=== PATIENT | female | born 1990 | race Caucasian/White ===

== ENCOUNTER 2018-04-03 07:52 | Day surgery (SDC) | payer BC ==
--- NOTE | 2018-04-01 15:34 | PCM.HPR ---
H & P Addendum review - H & P Addendum Review Date of Original H & P: 03/10/18 Date Reviewed: 04/03/18 Time Reviewed: 07:50 Patient was Examined: No Changes
[~2018-04-03 07:52] MED LIST: Lactated Ringers 1,000 ML IV SCH; ceFAZolin 1 GM Vial IM ONE
[2018-04-03] MEDS ORDERED: Midazolam 1 MG/ML 2 ML SDV ONE (08:46)
[2018-04-03] MEDS ORDERED: Propofol 200 MG/20 ML SDV ONE ×4 (08:46→12:36)
[2018-04-03] MEDS ORDERED: Lidocaine 2% 5 ML SDV ONE (08:46)
[2018-04-03] MEDS ORDERED: fentaNYL 100 MCG/2 ML SDV ONE ×2 (08:46→12:51)
[2018-04-03] MEDS ORDERED: Rocuronium 10 MG/ML 10 ML Syringe ONE (08:46)
[2018-04-03] MEDS ORDERED: Phenylephrine/Normal Saline 100 MCG/ML 10 ML Syringe ONE (08:48)
[2018-04-03] MEDS ORDERED: EPINEPHrine 1 MG/ML SDV ONE (08:54)
[2018-04-03] MEDS ORDERED: Oxymetazoline 0.05% Nasal Spray 15 ML Bottle ONE (08:55)
[2018-04-03] MEDS ORDERED: Dexamethasone 4 MG/ML 5 ML MDV ONE (08:55)
[2018-04-03] MEDS ORDERED: Thrombin (Bovine) 5,000 Unit Kit ONE (08:55)
[2018-04-03] MEDS ORDERED: Lidocaine 2% with EPINEPHrine 1:100,000 20 ML MDV ONE (08:55)
--- NOTE | 2018-04-03 09:12 | PCM.PREANE ---
Preanesthetic Assessment - Anesthesia/Transfusion/Family Hx Anesthesia History: Prior Anesthesia Without Reaction Family History of Anesthesia Reaction: No Transfusion History: No Prior Transfusion(s) Intubation History: Unknown - Review of Systems General: No Symptoms Pulmonary: No Symptoms Cardiovascular: No Symptoms Gastrointestinal: No Symptoms Neurological: No Symptoms Other: Reports: None - Physical Assessment Height: 1.6 m Weight: 67.585 kg ASA Class: 2 Mental Status: Alert & Oriented x3 Airway Class: Mallampati = 2 Dentition: Reports: Normal Dentition Thyro-Mental Finger Breadths: 3 Mouth Opening Finger Breadths: 3 ROM/Head Extension: Full Lungs: Clear to Auscultation, Normal Respiratory Effort Cardiovascular: Regular Rate, Regular Rhythm - Lab Values: Laboratory Last Values Urine HCG, Qual NEGATIVE (NEGATIVE) 04/03/18 08:45 - Allergies Allergies/Adverse Reactions: Allergies Allergy/AdvReac Type Severity Reaction Status Date / Time animal dander Allergy Hives Verified 03/31/18 08:57 - Blood Blood Available: No - Anesthesia Plan Pre-Op Medication Ordered: None - Acknowledgements Anesthesia Type Planned: General Anesthesia Pt an Appropriate Candidate for the Planned Anesthesia: Yes Alternatives and Risks of Anesthesia Discussed w Pt/Guardian: Yes Pt/Guardian Understands and Agrees with Anesthesia Plan: Yes PreAnesthesia Questionnaire HEENT History: Reports: Allergic Rhinitis Respiratory History: Reports: Asthma (moderate/severe) Genitourinary History: Reports: Renal Calculus 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, Dermatologic History: Reports: Eczema - Infectious Disease History Infectious Disease History: Reports: None - Past Surgical History Head Surgeries/Procedures: Reports: None HEENT Surgical History: Reports: Other (See Below) Other HEENT Surgeries/Procedures: hx of Right Tympanoplasty Female Surgical History: Reports: Section (x3), Other (See Below) Other Female Surgeries/Procedures: hysteroscopy with removal of IUD, laparoscopy for endometriosis (01/11) - SUBSTANCE USE Smoking Status *Q: Former Smoker Recreational Drug Use History: No - HOME MEDS Home Medications: Home Meds Albuterol [Ventolin HFA] 1 puff INH Q4H PRN 01/06/18 [History] Budesonide/Formoterol [Symbicort 160-4.5 MCG] 2 puff INH BID 01/06/18 [History] Phentermine HCl 37.5 mg PO DAILY 01/06/18 [History] Albuterol Sulfate 1 unit NEB ASDIRECTED PRN 03/31/18 [History] Ibuprofen 1 tab PO ASDIRECTED PRN 03/31/18 [History] - CURRENT (IN HOUSE) MEDS Current Meds: Current Medications Lactated Ringer's (Ringers, Lactated) 1,000 mls @ 125 mls/hr IV ASDIRECTED RAULITO Discontinued Medications Cefazolin Sodium (Ancef) 1 gm IM ONETIME ONE Stop: 04/03/18 00:02 Dexamethasone (Dexamethasone) Confirm Administered Dose 20 mg .ROUTE .STK-MED ONE Stop: 04/03/18 08:56 Epinephrine HCl (Adrenalin) Confirm Administered Dose 3 mg .ROUTE .STK-MED ONE Stop: 04/03/18 08:55 Fentanyl (Sublimaze) Confirm Administered Dose 100 mcg .ROUTE .STK-MED ONE Stop: 04/03/18 08:47 Lidocaine (Xylocaine-Mpf 2%) Confirm Administered Dose 5 ml .ROUTE .STK-MED ONE Stop: 04/03/18 08:47 Lidocaine/Epinephrine (Xylocaine 2% With Epinephrine 1:100,000) Confirm Administered Dose 20 ml .ROUTE .STK-MED ONE Stop: 04/03/18 08:56 Midazolam HCl (Versed 1 Mg/Ml) Confirm Administered Dose 2 mg .ROUTE .STK-MED ONE Stop: 04/03/18 08:47 Oxymetazoline HCl (Afrin Original 0.05% Nasal [place]) Confirm Administered Dose 30 ml .ROUTE .STK-MED ONE Stop: 04/03/18 08:56 Phenylephrine HCl (Phenylephrine In Ns 100 Mcg/Ml) Confirm Administered Dose 1 mg .ROUTE .STK-MED ONE Stop: 04/03/18 08:49 Propofol (Diprivan 20 Ml) Confirm Administered Dose 400 mg .ROUTE .STK-MED ONE Stop: 04/03/18 08:47 Propofol (Diprivan 20 Ml) Confirm Administered Dose 200 mg .ROUTE .STK-MED ONE Stop: 04/03/18 08:48 Rocuronium [place] (Zemuron) Confirm Administered Dose 100 mg .ROUTE .STK-MED ONE Stop: 04/03/18 08:47 Thrombin (Thrombin-Jmi) Confirm Administered Dose 5,000 unit .ROUTE .STK-MED ONE Stop: 04/03/18 08:56
[2018-04-03] MEDS ORDERED: Scopolamine 1.5 MG Transdermal Patch TRDERM PRN (09:13)
--- NOTE | 2018-04-03 10:52 | PCM.HPR ---
H & P Addendum review - H & P Addendum Review Date of Original H & P: 03/10/18 Date Reviewed: 04/03/18 Time Reviewed: 10:00 Patient was Examined: No Changes
[2018-04-03] MEDS ORDERED: HYDROmorphone 2 MG/ML Syringe ONE ×2 (11:01→12:43)
[2018-04-03] MEDS ORDERED: Phenylephrine 1% 10 MG/ML SDV ONE (11:20)
[2018-04-03] MEDS ORDERED: Mineral Oil/Petrolatum Ophth Oint 3.5 GM Tube ONE (11:21)
[2018-04-03] MEDS ORDERED: fentaNYL 250 MCG/5 ML SDV ONE ×2 (11:40→12:22)
[2018-04-03] MEDS ORDERED: Meperidine PF 25 MG/ML Syringe IV PRN (11:56)
[2018-04-03] MEDS ORDERED: fentaNYL 100 MCG/2 ML SDV IVPUSH PRN (11:59)
[2018-04-03] MEDS ORDERED: Promethazine 25 MG/ML SDV IM PRN (11:59)
[2018-04-03] MEDS ORDERED: Ondansetron 4 MG/2 ML SDV ONE (12:55)
[2018-04-03] MEDS ORDERED: Ibuprofen 400 MG Tab PO PRN (14:18)
[2018-04-03] MEDS ORDERED: Acetaminophen 325 MG Tab PO PRN (14:18)
[2018-04-03] MEDS ORDERED: oxyCODONE 5 MG Tab PO PRN (14:23)
--- NOTE | 2018-04-03 14:40 | PCM.POSTAN ---
POST ANESTHESIA ASSESSMENT - MENTAL STATUS Mental Status: Alert, Oriented - RESPIRATORY Respiratory Status: Respiratory Rate WNL, Airway Patent, O2 Saturation Stable - CARDIOVASCULAR CV Status: Pulse Rate WNL, Blood Pressure Stable - GASTROINTESTINAL GI Status: No Symptoms - PAIN Pain Score: 0 - POST OP HYDRATION Hydration Status: Adequate & Stable
--- NOTE | 2018-04-03 14:56 | PCM.OPNOTE ---
- General Post-Op/Procedure Note Date of Surgery/Procedure: 04/03/18 Condition: Good Free Text/Narrative:: Diagnosis: Nasal obstruction, Chronic sinusitis, sino nasal polyps allergic rhinitis Procedure: Bilateral MMA, Right - complete anterior and posterior ethmoidectomy , R Sphenoidotomy, Exploration of Right Frontal sinus with removal of tissue, Left partial ant and posterior ethmoidectomy, Navigation Surgeon: Mariya Pascal MD Anesthesia: General Anesthesiologist:Dee Grande CRNA Date of procedure: 04/03/2018 Indications: Nasal obstruction, Chronic sinusitis, Findings: Bilateral medialized uncinate with polypoid tissue, Right frontal recess polyps present, bilateral polypoid MT; R sphenoethmoid polyps Operation Details: The SecureWave navigation system was set up and the Tracker was fixed to the fore head as per protocol and successful registration was obtained. The left middle turbinate axilla, the head of middle turbinate and polyps were infiltrated with 2% lidocaine and 1 in 100,000 epinephrine-a total of 3 ml was used. Similar injections were performed on the right side. A cottonoid pledget soaked in 1: 5000 epinephrine each was placed in the middle meatus, draping over the middle turbinate axilla and one in the region of the sphenoethmoid recess - this was done bilaterally. The left side was addressed first. After appropriate period of decongestion the cottonoid pledgets were removed. The middle turbinate was gently medialized with freer elevator and the 0 rigid nasal endoscope was introduced into the middle meatus. The polypoid mucosa on middle turbinate and uncinate process were removed with microdebrider using the Tricut blade. A right sided pediatric backbiter was used to remove the uncinate process at the junction of the horizontal and vertical part. A straight shot tri-cut blade with navigation attached to it was then used to debride the vertical attachment of the uncinate process up to the attachment of Agger nasi cell. A ball probe was then used to identified the left maxillary sinus ostium The horizontal part of the uncinate process was then further dissected away with a ball probe and then with a combination of microdebrider and cold steel dissection. The 30 rigid endoscope was used to examine the maxillary ostium - findings as above. The maxillary sinus was thoroughly irrigated with saline. A 0 degree nasal endoscope was used and next the natural ostium of the left bulla ethmoidalis was identified and down fractured with a curette. Further removal of the bulla was performed with a microdebrider blade and anterior ethmoid cells were removed. The mucosa of bulla and anterior ethmoid cells was healthy. The posterior ethmoids were entered by penetrating the ground lamella at the junction of horizontal and vertical part with a curette; further dissection was carried out with a microdebrider and some of the posterior ethmoid cells. At all times the position of instruments was confirmed with ZummZumm navigation and a combination of straight, 90 and 70 degrees suctions and ostium seekers - all navigated were used as required at appropriate times to assist with identifying landmarks and dissection. Attention was then directed towards the right side. The cottonoid pledgets were removed. The middle turbinate was gently medialized with freer elevator and the 0 rigid nasal endoscope was introduced into the middle meatus. The polypoid mucosa on middle turbinate and uncinate process were removed with microdebrider using the Tricut blade. Some of this was prolapsing into the R maxillary sinus. A left sided pediatric backbiter was used to remove the uncinate process at the junction of the horizontal and vertical part. A straight shot tri-cut blade with navigation attached to it was then used to debride the vertical attachment of the uncinate process up to the attachment of Agger nasi cell. Polypoid tissue in the frontal recess area was also removed. A ball probe was then used to identified the right maxillary sinus ostium The horizontal part of the uncinate process was then further dissected away with a ball probe and then with a combination of microdebrider and cold steel dissection. The 30 rigid endoscope was used to examine the maxillary ostium - findings as above. The maxillary sinus was thoroughly irrigated with saline. A 0 degree nasal endoscope was used and next the natural ostium of the right bulla ethmoidalis was identified and down fractured with a curette. Further removal of the bulla was performed with a microdebrider blade and anterior ethmoid cells were removed - partially polypoid. The posterior ethmoids were entered by penetrating the ground lamella at the junction of horizontal and vertical part with a curette; there was polypoid tissue in the anterior , posterior ethmoid cells ;further dissection was carried out with a microdebrider and the posterior ethmoid cells were cleared sequentially with the polypoid tissue. Endoscope was then withdrawn and inserted between the middle turbinate and nasal septum in the region of sphenoethmoid recess. The polypoid tissue was removed. Sphenoid natural ostium was identified using inferior third of the superior turbinate as a landmark. This was entered, enlarged and the mucosa was found to be healthy. Using a 30 degree nasal endoscope the right frontal sinus ostium was identified posterior - medial to the agger nasi cell. Minimal polypoid mucosa was identified just below the frontal recess and removed with microdebrider. Frontal sinus was irrigated. The right middle meatus was then finally irrigated with the warm saline and inspected with rigid endoscope. No loose bone chips were identified. As on the left side at all times the position of instruments was confirmed with ZummZumm navigation and a combination of straight, 90 and 70 degrees suctions and ostium seekers - all navigated were used as required at appropriate times to assist with identifying landmarks and dissection. Post nasal space was suctioned clear of blood bilaterally and per orally. Nasal pore packs were placed bilaterally and middle meatus. A nasal bollster was applied. This completed the procedure and the patient was turned over to the anesthesiologist for recovery. Specimens: contents from suction trap IV fluids: 1500 ml Blood loss: 10 ml Blood products: nil Disposition: PACU for recovery Follow up: In 1 week.
--- NOTE | 2018-04-03 17:06 | PCM48HPAN ---
Post Anesthesia Note - EVALUATION WITHIN 48HRS OF ANESTHETIC Vital Signs in Normal Range: Yes Patient Participated in Evaluation: Yes Respiratory Function Stable: Yes Airway Patent: Yes Cardiovascular Function Stable: Yes Hydration Status Stable: Yes Pain Control Satisfactory: Yes Nausea and Vomiting Control Satisfactory: Yes Mental Status Recovered: Yes Resp Rate: 16
== END 2018-04-03 16:08 | disposition home or self-care (01) ==
LOC: MW.SDS 07:52
PROVIDERS: ATTEND Otolaryngology
DX: J34.89 Other specified disorders of nose and nasal sinuses (principal); J32.9 Chronic sinusitis, unspecified; J33.8 Other polyp of sinus; J45.909 Unspecified asthma, uncomplicated; Z98.890 Other specified postprocedural states; Z88.1 Allergy status to other antibiotic agents; Z91.048 Other nonmedicinal substance allergy status; Z79.899 Other long term (current) drug therapy; Z87.891 Personal history of nicotine dependence
CPT/HCPCS: 31253; 31255; 31259; 61782; 81025; A9270; J0171; J0690; J1170; J2001; J2250; J2370; J2405; J2704; J3010; J7120; J0131; J1100

== ENCOUNTER 2018-08-23 20:57 | Emergency (ER) | payer BC ==
--- NOTE | 2018-08-23 21:19 | EDM.PDOC ---
ED HPI GENERAL MEDICAL PROBLEM - General Chief Complaint: ENT Problem Stated Complaint: PART OF NEEDLE IN HER THROAT Time Seen by Provider: 08/23/18 21:02 - History of Present Illness INITIAL COMMENTS - FREE TEXT/NARRATIVE: HISTORY AND PHYSICAL: History of present illness: Patient is a 28-year-old white female who presents with possible foreign body ingestion form of a sewing needle or some part thereof from earlier today. This was a fluke in which a sewing machine needle broke and a part of it was thought to maybe have a shot into the patient's mouth and patient thinks she may have swallowed it she has some vague discomfort she is unsure if this is anxiety and provoked by the event. She has no difficulty speaking swallowing. Review of systems: As per history of present illness and below otherwise all systems reviewed and negative. Past medical history: As per history of present illness and as reviewed below otherwise noncontributory. Surgical history: As per history of present illness and as reviewed below otherwise noncontributory. Social history: No reported history of drug or alcohol abuse. Family history: As per history of present illness and as reviewed below otherwise noncontributory. Physical exam: HEENT: Atraumatic, normocephalic, pupils reactive, negative for conjunctival pallor or scleral icterus, mucous membranes moist, throat clear, neck supple, nontender, trachea midline. Lungs: Clear to auscultation, breath sounds equal bilaterally, chest nontender. Heart: S1S2, regular, negative for clicks, rubs, or JVD. Abdomen: Soft, nondistended, nontender. Negative for masses or hepatosplenomegaly. Negative for costovertebral tenderness. Pelvis: Stable nontender. Genitourinary: Deferred. Rectal: Deferred. Extremities: Atraumatic, negative for cords or calf pain. Neurovascular unremarkable. Neuro: Awake, alert, oriented. Cranial nerves II through XII unremarkable. Cerebellum unremarkable. Motor and sensory unremarkable throughout. Exam nonfocal. Diagnostics: Nose to rectum x-ray equivalent Therapeutics: None Impression: #1 medical screening exam #2 possible foreign body ingestion Definitive disposition and diagnosis as appropriate pending reevaluation and review of above. - Related Data Allergies Allergy/AdvReac Type Severity Reaction Status Date / Time animal dander Allergy Hives Verified 03/31/18 08:57 Home Meds: Home Meds Albuterol [Ventolin HFA] 1 puff INH Q4H PRN 01/06/18 [History] Budesonide/Formoterol [Symbicort 160-4.5 MCG] 2 puff INH BID 01/06/18 [History] Phentermine HCl 37.5 mg PO DAILY 01/06/18 [History] Albuterol Sulfate 1 unit NEB ASDIRECTED PRN 03/31/18 [History] Ibuprofen 1 tab PO ASDIRECTED PRN 03/31/18 [History] Past Medical History HEENT History: Reports: Allergic Rhinitis Respiratory History: Reports: Asthma Genitourinary History: Reports: Renal Calculus 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, Dermatologic History: Reports: Eczema - Infectious Disease History Infectious Disease History: Reports: None - Past Surgical History Head Surgeries/Procedures: Reports: None HEENT Surgical History: Reports: Other (See Below) Other HEENT Surgeries/Procedures: hx of Right Tympanoplasty Female Surgical History: Reports: Section, Other (See Below) Other Female Surgeries/Procedures: hysteroscopy with removal of IUD, laparoscopy for endometriosis (01/11) Social & Family History - Family History Family Medical History: Noncontributory - Caffeine Use Caffeine Use: Reports: Coffee, Energy Drinks, Soda ED ROS GENERAL - Review of Systems Review Of Systems: ROS reveals no pertinent complaints other than HPI. ED EXAM, GENERAL - Physical Exam Exam: See Below (See dictation) Course - Vital Signs Last Recorded V/S: Last Vital Signs Temp 36.6 C 08/23/18 20:57 Pulse 78 08/23/18 20:57 Resp 16 08/23/18 20:57 BP 127/82 08/23/18 20:57 Pulse Ox 97 08/23/18 20:57 Departure - Departure Time of Disposition: 22:20 Disposition: Home, Self-Care 01 Condition: Good Clinical Impression: Encounter for medical screening examination - Discharge Information Forms: ED Department Discharge Additional Instructions: The following information is given to patients seen in the emergency department who are being discharged to home. This information is to outline your options for follow-up care. We provide all patients seen in our emergency department with a follow-up referral. The need for follow-up, as well as the timing and circumstances, are variable depending upon the specifics of your emergency department visit. If you don't have a primary care physician on staff, we will provide you with a referral. We always advise you to contact your personal physician following an emergency department visit to inform them of the circumstance of the visit and for follow-up with them and/or the need for any referrals to a consulting specialist. The emergency department will also refer you to a specialist when appropriate. This referral assures that you have the opportunity for followup care with a specialist. All of these measure are taken in an effort to provide you with optimal care, which includes your followup. Under all circumstances we always encourage you to contact your private physician who remains a resource for coordinating your care. When calling for followup care, please make the office aware that this follow-up is from your recent emergency room visit. If for any reason you are refused follow-up, please contact the [facility] emergency department at and asked to speak to the emergency department charge nurse. Follow-up primary medical doctor as needed as discussed return as needed as discussed
--- NOTE | 2018-08-23 21:53 | CR ---
INDICATION: R/O FOREIGN BODY. PATIENT FEELS LIKE NEEDLE BROKE OFF AND IS IN FRONT PART OF NECK TECHNIQUE: Soft tissue neck 2 view. COMPARISON: None. FINDINGS: The airway is patent and normal. Epiglottis is normal. The retropharyngeal soft tissues are normal. No obvious masses. The visualized cervical spine demonstrates no significant findings. No radiodense foreign body. IMPRESSION: Unremarkable soft tissue view of the neck. Dictated by Leon Mason MD @ Aug 23 2018 9:51PM Signed by Dr. Leon Mason @ Aug 23 2018 9:52PM
--- NOTE | 2018-08-23 22:11 | CR ---
INDICATION: Foreign body ingestion TECHNIQUE: Chest radiograph 1 view COMPARISON: None FINDINGS: Mediastinum: The mediastinum is normal in appearance. The heart silhouette is normal in size and morphology. Lung: Both lungs are unremarkable in appearance. No sign of pleural effusion seen. No pneumothorax is identified. identified. IMPRESSION: 1. No radiopaque foreign bodies are identified. Radiolucent foreign objects cannot be excluded by radiography. Dictated by: Chris March MD @ 08/23/2018 22:10:07 (Electronically Signed)
--- NOTE | 2018-08-23 22:11 | CR ---
INDICATION: Foreign body ingestion TECHNIQUE: Abdominal radiograph 2 views COMPARISON: None FINDINGS: Moderate degradation of image quality noted due to body habitus. Bowel: The bowel gas pattern is normal without evidence of bowel obstruction. IUD seen within midline pelvis. Soft tissue: No evidence of pneumoperitoneum present. No suspicious calcifications noted. No radiopaque foreign bodies are identified. Bone: Unremarkable for age. IMPRESSION: 1. No radiopaque foreign bodies are identified. Radiolucent foreign objects cannot be excluded by radiography. Dictated by Chris March MD @ 08/23/2018 10:08:57 PM Dictated by: Chris March MD @ 08/23/2018 22:09:05 (Electronically Signed)
== END 2018-08-23 22:29 | disposition home or self-care (01) ==
LOC: MW.ED 20:57
DX: Z03.89 Encounter for observation for other suspected diseases and conditions ruled out (principal); J45.909 Unspecified asthma, uncomplicated; Z79.899 Other long term (current) drug therapy
CPT/HCPCS: 70360; 70360-26; 71045; 71045-26; 74018; 74018-26; 99283-25

== ENCOUNTER 2019-01-05 06:30 | Day surgery (SDC) | payer BC ==
[2019-01-05] MEDS ORDERED: ceFAZolin 2 GM in Premix Bag 1 BAG IV ONE (07:00)
[2019-01-05] MEDS ORDERED: Lactated Ringers 1,000 ML IV SCH (07:00)
[2019-01-05] MEDS ORDERED: Lidocaine 2% 5 ML SDV ONE (07:15)
[2019-01-05] MEDS ORDERED: Midazolam 1 MG/ML 2 ML SDV ONE (07:15)
[2019-01-05] MEDS ORDERED: fentaNYL 100 MCG/2 ML SDV ONE ×3 (07:15→09:47)
[2019-01-05] MEDS ORDERED: Propofol 200 MG/20 ML SDV ONE (07:15)
--- NOTE | 2019-01-05 07:23 | PCM.PREANE ---
Preanesthetic Assessment - Anesthesia/Transfusion/Family Hx Anesthesia History: Prior Anesthesia Without Reaction Family History of Anesthesia Reaction: No Transfusion History: No Prior Transfusion(s) Intubation History: Unknown - Review of Systems General: No Symptoms Pulmonary: No Symptoms Cardiovascular: No Symptoms Gastrointestinal: No Symptoms Neurological: No Symptoms Other: Reports: None - Physical Assessment NPO Status Date: 01/04/19 NPO Status Time: 20:30 Vital Signs: Last Vital Signs Temp 96.8 F 01/05/19 06:45 Pulse 74 01/05/19 06:45 Resp 16 01/05/19 06:45 BP 97/74 01/05/19 06:45 Pulse Ox 100 01/05/19 06:45 Height: 5 ft 3 in Weight: 71.668 kg ASA Class: 2 Mental Status: Alert & Oriented x3 Airway Class: Mallampati = 2 Dentition: Reports: Normal Dentition ROM/Head Extension: Full Lungs: Clear to Auscultation, Normal Respiratory Effort Cardiovascular: Regular Rate, Regular Rhythm - Lab Values: Laboratory Last Values Urine HCG, Qual NEGATIVE (NEGATIVE) 01/05/19 06:50 - Allergies Allergies/Adverse Reactions: Allergies Allergy/AdvReac Type Severity Reaction Status Date / Time animal dander Allergy Hives Verified 12/30/18 14:08 - Blood Blood Available: No - Anesthesia Plan Pre-Op Medication Ordered: None - Acknowledgements Anesthesia Type Planned: General Anesthesia Pt an Appropriate Candidate for the Planned Anesthesia: Yes Alternatives and Risks of Anesthesia Discussed w Pt/Guardian: Yes Pt/Guardian Understands and Agrees with Anesthesia Plan: Yes Additional Comments: PMH: asthma, uses inhaled steroid inhaler daily, last use of rescue inhaler was 1 wk ago, no oral steroids for months, never to ED or hospitalized for asthma PLAN: ga/lma PreAnesthesia Questionnaire HEENT History: Reports: Allergic Rhinitis Respiratory History: Reports: Asthma, Other (See Below) Other Respiratory History: uses rescue inhaler 2x per week Genitourinary History: Reports: Renal Calculus Other Genitourinary History: has passed 1 kidney stone 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, Dermatologic History: Reports: Eczema - Infectious Disease History Infectious Disease History: Reports: None - Past Surgical History Head Surgeries/Procedures: Reports: None HEENT Surgical History: Reports: Naso-Sinus Surgery, Other (See Below) Other HEENT Surgeries/Procedures: right Tympanoplasty Respiratory Surgical History: Reports: None Female Surgical History: Reports: Section, Other (See Below) Other Female Surgeries/Procedures: hx of Laparoscopy, x3 Dermatological Surgical History: Reports: None - SUBSTANCE USE Smoking Status *Q: Never Smoker Recreational Drug Use History: No - HOME MEDS Home Medications: Home Meds Albuterol [Ventolin HFA] 1 puff INH Q4H PRN 01/06/18 [History] Budesonide/Formoterol [Symbicort 160-4.5 MCG] 2 puff INH BID 01/06/18 [History] Phentermine HCl 37.5 mg PO DAILY 12/30/18 [History] - CURRENT (IN HOUSE) MEDS Current Meds: Current Medications Lactated Ringer's (Ringers, Lactated) 1,000 mls @ 125 mls/hr IV ASDIRECTED [facility] Last Admin: 01/05/19 06:55 Dose: 125 mls/hr Cefazolin Sodium/Dextrose 2 gm (/ Premix) 50 mls @ 100 mls/hr IV ONETIME ONE Stop: 01/05/19 07:29 Discontinued Medications Fentanyl (Sublimaze) Confirm Administered Dose 100 mcg .ROUTE .STK-MED ONE Stop: 01/05/19 07:16 Lidocaine (Xylocaine-Mpf 2%) Confirm Administered Dose 5 ml .ROUTE .STK-MED ONE Stop: 01/05/19 07:16 Midazolam HCl (Versed 1 Mg/Ml) Confirm Administered Dose 2 mg .ROUTE .STK-MED ONE Stop: 01/05/19 07:16 Propofol (Diprivan 20 Ml) Confirm Administered Dose 200 mg .ROUTE .STK-MED ONE Stop: 01/05/19 07:16
[2019-01-05] MEDS ORDERED: Lidocaine 1% 20 ML MDV ONE (07:43)
[2019-01-05] MEDS ORDERED: Bupivacaine 0.5% 10 ML SDV ONE (07:43)
[2019-01-05] MEDS ORDERED: ceFAZolin/Dextrose,Iso-Osmotic 2 GM/50 ML Duplex Bag IV ONE (07:52)
[2019-01-05] MEDS ORDERED: Ondansetron 4 MG/2 ML SDV ONE ×2 (09:07→11:06)
[2019-01-05] MEDS ORDERED: HYDROmorphone 2 MG/ML Syringe ONE (10:00)
--- NOTE | 2019-01-05 10:04 | PCM.OPNOTE ---
- General Post-Op/Procedure Note Date of Surgery/Procedure: 01/05/19 Operative Procedure(s): 1. ostectomy second metatarsal right foot. 2. microfracture second metatarsal right foot Findings: consistent with diagnosis Pre Op Diagnosis: [place] infraction second metatarsal right foot Post-Op Diagnosis: [place] infraction second metatarsal right foot Anesthesia Technique: General LMA Primary Surgeon: Gerry Jefferson Pathology: loose bodies removed from second metatarsal head area right foot EBL in mLs: 5 Complications: none Condition: Good Free Text/Narrative:: materials: 4-0 vicryl, 4-0 Stratafix injectables: 6 ml 0.5% marcaine plain tourniquet time: 54 min
--- NOTE | 2019-01-05 10:11 | PN ---
PREOPERATIVE PROGRESS NOTE. IDENTIFICATION: Patient is a 28-year-old female. DATE OF SURGERY: January 05, 2019. SURGEON: Gerry Jefferson DPM. PLANNED PROCEDURE: 1. Ostectomy, second metatarsal, right foot. 2. Possible microfracture, second metatarsal, right foot. ALLERGIES: 1. Animal dander. 2. Mold. 3. Doxycycline. MEDICATIONS: 1. Phentermine 37.5 mg daily. 2. Symbicort 160/4.5 mcg two puffs twice a day. 3. Ventolin HFA inhaler two puffs every 4 hours as needed for cough, wheezing, shortness of breath. Medical conditions: asthma, hx of obesity, allergic rhinitis Surgical history: x 3, surgery on right tympanic membrane, laparascopy LABORATORY DATA: HCG is negative. Labs were stated by Dr. Morgan to include INR, CBC, BMP and that all were normal. According to Dr. Morgan, who has cleared the patient for surgery, EKG was reviewed and interpreted independently by Dr. Morgan, did show a slight sinus tachycardia, but no acute ischemic changes. FL interval and QRS duration were normal. A 2-view chest x-ray reviewed by Dr. Morgan did not show any acute cardiopulmonary changes. The patient is cleared for surgery with no contraindications to surgery by Dr. Alfonzo Morgan. All patient questions have been asked and answered. No guarantees have been expressed or implied. Risks and benefits of surgery have been thoroughly discussed with the patient with her present this morning as well as by phone prior to surgery and in the office prior to that. The patient presents and gives written consent for the surgical procedures as stated above. CUONG / MAURICIO /[id number] MONICA
[2019-01-05] MEDS ORDERED: HYDROmorphone 2 MG/ML Syringe IVPUSH PRN (10:18)
--- NOTE | 2019-01-05 10:33 | PCM.POSTAN ---
POST ANESTHESIA ASSESSMENT - MENTAL STATUS Mental Status: Alert - VITAL SIGNS Vital Signs: Last Vital Signs Temp 37 C 01/05/19 09:50 Pulse 79 01/05/19 10:25 Resp 14 01/05/19 10:25 BP 115/80 01/05/19 10:25 Pulse Ox 95 01/05/19 10:25 - RESPIRATORY Respiratory Status: Respiratory Rate WNL - CARDIOVASCULAR CV Status: Pulse Rate WNL - GASTROINTESTINAL GI Status: No Symptoms - POST OP HYDRATION Hydration Status: Adequate & Stable - OBSERVATIONS Free Text/Narrative:: Patient pain level 5/10. Pt was given Dilaudid 1 mg in recovery by VEHICLE CALIBRATION ENGINEER. TAX ASSISTANT gave patient a total of fentanyl 300 mg and Ketorolac 30 mg. Patient awake and stable. Thank You, Darryl Choudhury CRNA
[2019-01-05] MEDS ORDERED: Ondansetron 4 MG/2 ML SDV IVPUSH PRN (11:03)
--- NOTE | 2019-01-05 11:51 | PCM48HPAN ---
Post Anesthesia Note - EVALUATION WITHIN 48HRS OF ANESTHETIC Vital Signs in Normal Range: Yes Patient Participated in Evaluation: Yes Respiratory Function Stable: Yes Airway Patent: Yes Cardiovascular Function Stable: Yes Hydration Status Stable: Yes Pain Control Satisfactory: Yes Nausea and Vomiting Control Satisfactory: Yes Mental Status Recovered: Yes Vital Signs: Last Vital Signs Temp 97.0 F 01/05/19 10:50 Pulse 64 01/05/19 11:10 Resp 16 01/05/19 11:10 BP 117/70 01/05/19 11:10 Pulse Ox 96 01/05/19 11:10
--- NOTE | 2019-01-05 16:03 | CR ---
EXAM DATE: 01/05/19 PATIENT'S AGE: 28 Right forefoot: Five fluoroscopic spot views of the right forefoot were obtained utilizing C-arm device. No significant change is seen between the five views of this exam. Please correlate as to procedure. Film technique is too light to show much detail. Impression: 1. Findings as noted above. Diagnostic code #2 Report Signed by Proxy. MONICA
--- NOTE | 2019-01-05 22:34 | OR ---
SURGEON: Gerry Jefferson DPM DATE OF PROCEDURE: 01/05/2019 PRIMARY SURGEON: Gerry Jefferson DPM. PREOPERATIVE DIAGNOSIS: 1. 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 POSTOPERATIVE DIAGNOSIS: 1. 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 OPERATIVE PROCEDURES: 1. Ostectomy 2nd metatarsal, right foot. 2. Microfracture, 2nd metatarsal, right foot. FINDINGS: Consistent with diagnosis. HEMOSTASIS: Above ankle pneumatic tourniquet inflated to a pressure of 250 mmHg after an Esmarch bandage exsanguination of the right lower extremity. ANESTHESIA: General. PATHOLOGY: Loose bodies removed from 2nd metatarsal head area, right foot. ESTIMATED BLOOD LOSS: 5 mL. COMPLICATIONS: None. MATERIALS: 4-0 Vicryl, 4-0 Stratafix. INJECTABLES: 6 mL of 0.5% Marcaine plain. CONDITION: The patient tolerated the procedure and anesthesia well with no complications noted and a prompt hyperemic response was noted to all digits of the right lower extremity following deflation of the tourniquet. TOURNIQUET TIME: 54 minutes. JUSTIFICATION FOR THE PROCEDURE: The patient is a 28-year-old female who has long suffered pain in the right 2nd metatarsal head and metatarsophalangeal joint area of the right foot who underwent both x-ray in my office during her initial visit and subsequently a CT scan to further evaluate the pathology about her right 2nd metatarsal head. 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 In any event, the patient does have loose bodies that are causing pain in the right foot. Additionally, the condition of the 2nd metatarsal head is thought to be compromised by this condition and therefore the patient was consented for possible microfracture of the 2nd metatarsal of the right foot in order to increase the blood flow and stimulate potential regeneration of cartilage about the 2nd metatarsal head. The patient understands the risks and benefits of surgery and wishes to proceed with surgery and has consented for the procedure in writing. All patient's questions have been answered. No guarantees expressed or implied and the patient has been fully apprised of risks and benefits of surgery including prolonged healing, postoperative infection and failure to achieve adequate alleviation of her symptoms. PROCEDURE IN DETAIL: The patient was brought to the operating room and transferred to the operating table in the supine position. Anesthesia was administered and aseptic scrub and drape was performed about the patient's right lower extremity. Prior to beginning the procedure, a time-out was performed verifying the procedures consented for and the surgical site and prophylaxis that had been administered. Preoperative fluoroscopy was utilized documenting preoperative site and incision was planned just lateral to the extensor tendon over the 2nd ray running from approximately 1 cm proximal to the 2nd metatarsophalangeal joint of the right foot distally to the mid shaft of the proximal phalanx of the 2nd toe on the right foot. Esmarch bandage exsanguination was performed. Tourniquet was inflated to 250 mmHg. An incision was then made following the planned incision site running from proximal to distal and deepened using a curved mosquito hemostat through the subcutaneous tissue. Blunt and sharp dissection was utilized as needed and all small bleeders were bovied as necessary. The extensor tendon was identified, noted to be slightly torn, presumably by sharp loose body or loose bodies and was retracted out of the way. It was also undermined as needed to access the 2nd metatarsophalangeal joint. At this time, loose bodies were readily visible and easily removed with a pickup. A total of 5 loose bodies consisting of various sizes and shapes of bone were removed including one which was between 1 and 1.5 cm in length, which was larger than anything indicated by the CT scan. The condition of the 2nd metatarsal head was evaluated. There was preservation of most of the 2nd metatarsal head including cartilage; however, early chondromalacia was noted to the dorsal 3rd of the 2nd metatarsal head and intraoperative decision was made to proceed with the microfracture technique to increase blood flow to the 2nd metatarsal head and this was achieved using a 0.035 inch K-wire, which was drilled in 6 locations at various angles and from various directions into the 2nd metatarsal distal shaft and head area. The site was irrigated with copious amounts of normal sterile saline and reinspected for further loose bodies. Intraoperative fluoroscopy was utilized to search for any hidden loose bodies as well. No further loose bodies being found, final x-rays were taken and saved. Closure began with repair of the slightly torn extensor tendon which was noted to be slightly torn on the lateral side. Only two 4-0 Vicryl sutures were utilized to repair the loose portion of the tendon and closure proceeded with the deep and subcutaneous tissue being closed with 4-0 Vicryl suture and then a running subcuticular stitch using 4-0 Stratafix suture. The tourniquet was deflated at a time of 54 minutes. There was a prompt hyperemic response to all digits of the patient's right foot. Dressings were applied consisting of Betadine-soaked Xeroform gauze, 4 x 4 gauze, Kerlix roll, and Aba bandage. Prior to application of dressing, 6 mL of 0.5% Marcaine plain was injected about the surgical site. The patient tolerated the anesthesia and the procedure well with no complications noted and vital signs stable, was transported from the operating room to the recovery room where after brief stay patient was to be brought to her preoperative room and discharged with written and verbal instructions regarding postoperative care and follow up in my office which will be in 2 days' time. The patient has my cell phone in the event that she has any questions. CUONG MARTÍNEZ /[id number] MONICA
[2019-01-06] MEDS ORDERED: ceFAZolin 2 GM in Premix Bag 1 BAG IV ONE (07:00)
== END 2019-01-05 11:30 | disposition home or self-care (01) ==
LOC: MW.SDS 06:30
PROVIDERS: ATTEND Podiatrist Foot & Ankle Surgery
DX: M24.08 Loose body, other site (principal); M92.71 Juvenile osteochondrosis of metatarsus, right foot; M94.271 Chondromalacia, right ankle and joints of right foot; J45.909 Unspecified asthma, uncomplicated; E66.9 Obesity, unspecified; Z91.048 Other nonmedicinal substance allergy status; Z88.1 Allergy status to other antibiotic agents
CPT/HCPCS: 28288; 76000; 81025; J0690; J1170; J2001; J2250; J2405; J2704; J3010; J3490; J7120; 01480

== ENCOUNTER 2019-03-05 10:03 | Emergency (ER) | payer BC, OTHER, SELFPAY ==
--- NOTE | 2019-03-05 10:21 | EDM.PDOC ---
ED HPI GENERAL MEDICAL PROBLEM - General Chief Complaint: Headache Stated Complaint: HEADACHE Time Seen by Provider: 03/05/19 10:21 Source of Information: Reports: Patient History Limitations: Reports: No Limitations - History of Present Illness INITIAL COMMENTS - FREE TEXT/NARRATIVE: HISTORY AND PHYSICAL: History of present illness: She is a 28-year-old female presents the ED with complaint of headache. Said for the past 6 days she has had a headache that is constant with occasional stabbing pain. She states it moves around her head but is currently on the left side and top of her head. She has been taking Tylenol and Motrin without relief of symptoms. She states she also went to the chiropractor twice without relief and had her eyes checked. She reports pain is worse with bending forward. She states she has had some photophobia as well as nausea. She denies head injury, visual disturbances, fevers, chills, neck pain, extremity tingling or weakness sinus pain or pressure. Review of systems: As per history of present illness and below otherwise all systems reviewed and negative. Past medical history: As per history of present illness and as reviewed below otherwise noncontributory. Surgical history: As per history of present illness and as reviewed below otherwise noncontributory. Social history: No reported history of drug or alcohol abuse. Family history: As per history of present illness and as reviewed below otherwise noncontributory. Physical exam: General: Patient sitting comfortably in no acute distress and nontoxic appearing HEENT: TMs clear Bilaterally, no sinus tenderness to palpation, no temporal tenderness tenderness, atraumatic, normocephalic, pupils reactive, negative for conjunctival pallor or scleral icterus, mucous membranes moist, throat clear, neck supple, nontender, trachea midline. No meningeal signs. Lungs: Clear to auscultation, breath sounds equal bilaterally, chest nontender. Heart: S1S2, regular, negative for clicks, rubs, or overt murmur. Abdomen: Soft, nondistended, nontender. Negative for masses or hepatosplenomegaly. Negative for costovertebral tenderness. No rigidity, rebound , guarding. Pelvis: Stable nontender. Genitourinary: Deferred. Rectal: Deferred. Extremities: Atraumatic, negative for cords or calf pain. Neurovascular unremarkable. Neuro: Awake, alert, oriented. Cranial nerves II through XII unremarkable. Cerebellum unremarkable. Motor and sensory unremarkable throughout. Exam nonfocal. Notes: Patient reports improvement in headache from 8 to a 5 and requesting to go home at this time. Diagnostics: CBC, CMP Declined Head CT Therapeutics: 1L NS IV 30mg Toradol IV 10mg Reglan IV 25mg Benadryl IV 4mg Zofran IV Prescriptions: None Impression: Headache Plan: Drink plenty of fluids and alternate tylenol and motrin as needed Follow up with primary care provider Return to ED as needed as discussed Definitive disposition and diagnosis as appropriate pending reevaluation and review of above. headache Pain Score (Numeric/FACES): 8 - Related Data Allergies Allergy/AdvReac Type Severity Reaction Status Date / Time animal dander Allergy Hives Verified 03/05/19 10:13 Home Meds: Home Meds Albuterol [Ventolin HFA] 1 puff INH Q4H PRN 01/06/18 [History] Budesonide/Formoterol [Symbicort 160-4.5 MCG] 2 puff INH BID 01/06/18 [History] Past Medical History HEENT History: Reports: Allergic Rhinitis Respiratory History: Reports: Asthma, Other (See Below) Other Respiratory History: uses rescue inhaler 2x per week Genitourinary History: Reports: Renal Calculus Other Genitourinary History: has passed 1 kidney stone [employer] History: Reports: Endometriosis, Dermatologic History: Reports: Eczema - Infectious Disease History Infectious Disease History: Reports: None - Past Surgical History Head Surgeries/Procedures: Reports: None HEENT Surgical History: Reports: Naso-Sinus Surgery, Other (See Below) Other HEENT Surgeries/Procedures: right Tympanoplasty Respiratory Surgical History: Reports: None Female Surgical History: Reports: Section, Other (See Below) Other Female Surgeries/Procedures: hx of Laparoscopy, x3 Musculoskeletal Surgical History: Reports: Other (See Below) Other Musculoskeletal Surgeries/Procedures:: foot sx Dermatological Surgical History: Reports: None Social & Family History - Family History Family Medical History: Noncontributory - Tobacco Use Smoking Status *Q: Never Smoker - Caffeine Use Caffeine Use: Reports: Coffee, Energy Drinks, Soda - Recreational Drug Use Recreational Drug Use: No ED ROS GENERAL - Review of Systems Review Of Systems: Comprehensive ROS is negative, except as noted in HPI. - Physical Exam Exam: See Below (See dictation) Course - Vital Signs Last Recorded V/S: Last Vital Signs Temp 97.9 F 03/05/19 10:11 Pulse 88 03/05/19 10:11 Resp 16 03/05/19 10:11 BP 136/76 03/05/19 10:11 Pulse Ox 96 03/05/19 10:11 - Orders/Labs/Meds Orders: Active Orders 24 hr Category Date Time Status HCG QUALITATIVE,URINE [URCHEM] Stat Lab 03/05/19 10:22 Ordered Sodium Chloride 0.9% [Saline Flush] Med 03/05/19 10:22 Active 10 ml FLUSH ASDIRECTED PRN Sodium Chloride 0.9% [Saline Flush] Med 03/05/19 10:22 Active 2.5 ml FLUSH ASDIRECTED PRN Saline Lock Insert [OM.PC] Stat Oth 03/05/19 10:22 Ordered Medication Orders Sodium Chloride (Saline Flush) 10 ml FLUSH ASDIRECTED PRN PRN Reason: Keep Vein Open Last Admin: 03/05/19 11:12 Dose: 10 ml Sodium Chloride (Saline Flush) 2.5 ml FLUSH ASDIRECTED PRN PRN Reason: Keep Vein Open Last Admin: 03/05/19 11:12 Dose: 2.5 ml Labs: Laboratory Tests 03/05/19 03/05/19 Range/Units 10:55 10:55 WBC 4.93 (4.0-11.0) K/uL RBC 4.92 (4.30-5.90) M/uL Hgb 14.5 (12.0-16.0) g/dL Hct 43.1 (36.0-46.0) % MCV 87.6 (80.0-98.0) fL MCH 29.5 (27.0-32.0) pg MCHC 33.6 (31.0-37.0) g/dL RDW Std Deviation 43.4 (28.0-62.0) fl RDW Coeff of Michelle 14 (11.0-15.0) % Plt Count 303 (150-400) K/uL MPV 10.70 (7.40-12.00) fL Neut % (Auto) 58.8 (48.0-80.0) % Lymph % (Auto) 29.4 (16.0-40.0) % [place] % (Auto) 5.3 (0.0-15.0) % Eos % (Auto) 5.5 (0.0-7.0) % Baso % (Auto) 1.0 (0.0-1.5) % Neut # (Auto) 2.9 (1.4-5.7) K/uL Lymph # (Auto) 1.5 (0.6-2.4) K/uL [place] # (Auto) 0.3 (0.0-0.8) K/uL Eos # (Auto) 0.3 (0.0-0.7) K/uL Baso # (Auto) 0.1 (0.0-0.1) K/uL Nucleated RBC % 0.0 /100WBC Nucleated RBCs # 0 K/uL Sodium 142 (136-145) mmol/L Potassium 4.2 (3.5-5.1) mmol/L Chloride 105 (98-107) mmol/L Carbon Dioxide 29.0 (21.0-32.0) mmol/L BUN 12 (7.0-18.0) mg/dL Creatinine 0.7 (0.6-1.0) mg/dL Est Cr Clr Drug Dosing 98.98 mL/min Estimated GFR (MDRD) > 60.0 ml/min Glucose 85 (74-106) mg/dL Calcium 9.4 (8.5-10.1) mg/dL Total Bilirubin 0.5 (0.2-1.0) mg/dL AST 15 (15-37) IU/L ALT 25 (14-63) IU/L Alkaline Phosphatase 63 (46-116) U/L Total Protein 7.8 (6.4-8.2) g/dL Albumin 4.4 (3.4-5.0) g/dL Globulin 3.4 (2.6-4.0) g/dL Albumin/Globulin Ratio 1.3 (0.9-1.6) Meds: Medications Generic Name Dose Route Start Last Admin Trade Name Freq PRN Reason Stop Dose Admin Sodium Chloride 10 ml 03/05/19 10:03/05/19 11:12 Saline Flush FLUSH 10 ml ASDIRECTED PRN Administration Keep Vein Open Sodium Chloride 2.5 ml 03/05/19 10:03/05/19 11:12 Saline Flush FLUSH 2.5 ml ASDIRECTED PRN Administration Keep Vein Open Discontinued Medications Generic Name Dose Route Start Last Admin Trade Name Get PRN Reason Stop Dose Admin Diphenhydramine HCl 25 mg 03/05/19 10:49 03/05/19 11:10 Benadryl IVPUSH 03/05/19 10:50 25 mg ONETIME ONE Administration Sodium Chloride 1,000 mls @ 999 mls/hr 03/05/19 10:22 03/05/19 11:07 Normal Saline IV 03/05/19 11:22 999 mls/hr STAT ONE Administration Ketorolac Tromethamine 30 mg 03/05/19 10:49 03/05/19 11:09 Toradol IVPUSH 03/05/19 10:50 30 mg ONETIME ONE Administration Metoclopramide HCl 10 mg 03/05/19 10:49 03/05/19 11:11 Reglan IVPUSH 03/05/19 10:50 10 mg ONETIME ONE Administration Ondansetron HCl 4 mg 03/05/19 10:49 03/05/19 11:07 Zofran IVPUSH 03/05/19 10:50 4 mg ONETIME ONE Administration Departure - Departure Time of Disposition: 12:08 Disposition: Home, Self-Care 01 Condition: Good Clinical Impression: Headache - Discharge Information Referrals: Kieran Scott MD [Primary Care Provider] - Forms: ED Department Discharge Additional Instructions: The following information is given to patients seen in the emergency department who are being discharged to home. This information is to outline your options for follow-up care. We provide all patients seen in our emergency department with a follow-up referral. The need for follow-up, as well as the timing and circumstances, are variable depending upon the specifics of your emergency department visit. If you don't have a primary care physician on staff, we will provide you with a referral. We always advise you to contact your personal physician following an emergency department visit to inform them of the circumstance of the visit and for follow-up with them and/or the need for any referrals to a consulting specialist. The emergency department will also refer you to a specialist when appropriate. This referral assures that you have the opportunity for follow-up care with a specialist. All of these measure are taken in an effort to provide you with optimal care, which includes your follow-up. Under all circumstances we always encourage you to contact your private physician who remains a resource for coordinating your care. When calling for follow-up care, please make the office aware that this follow-up is from your recent emergency room visit. If for any reason you are refused follow-up, please contact the [facility] Emergency Department at and asked to speak to the emergency department charge nurse. [facility] [address] [place] [id number] [facility] [address] [place] [id number] Drink plenty of fluids and alternate tylenol and motrin as needed Follow up with primary care provider Return to ED as needed as discussed Sepsis Event Note - Evaluation Sepsis Screening Result: No Definite Risk - Focused Exam Vital Signs: Vital Signs Temp Pulse Resp BP Pulse Ox 03/05/19 10:11 97.9 F 88 16 136/76 96 Date Exam was Performed: 03/05/19 Time Exam was Performed: 12:07 - My Orders Last 24 Hours: My Active Orders 03/05/19 10:22 HCG QUALITATIVE,URINE [URCHEM] Stat Sodium Chloride 0.9% [Saline Flush] 10 ml FLUSH ASDIRECTED PRN Sodium Chloride 0.9% [Saline Flush] 2.5 ml FLUSH ASDIRECTED PRN Saline Lock Insert [OM.PC] Stat - Assessment/Plan Last 24 Hours: My Active Orders 03/05/19 10:22 HCG QUALITATIVE,URINE [URCHEM] Stat Sodium Chloride 0.9% [Saline Flush] 10 ml FLUSH ASDIRECTED PRN Sodium Chloride 0.9% [Saline Flush] 2.5 ml FLUSH ASDIRECTED PRN Saline Lock Insert [OM.PC] Stat
[2019-03-05] MEDS ORDERED: Sodium Chloride 0.9% 1,000 ML IV ONE (10:22)
[2019-03-05] MEDS ORDERED: Sodium Chloride 0.9% 2.5 ML Syringe FLUSH PRN (10:22)
[2019-03-05] MEDS ORDERED: Sodium Chloride 0.9% 10 ML Syringe FLUSH PRN (10:22)
[2019-03-05] MEDS ORDERED: Metoclopramide 10 MG/2 ML SDV IVPUSH ONE (10:49)
[2019-03-05] MEDS ORDERED: Ketorolac 30 MG/ML SDV IVPUSH ONE (10:49)
[2019-03-05] MEDS ORDERED: diphenhydrAMINE 50 MG/ML SDV IVPUSH ONE (10:49)
[2019-03-05] MEDS ORDERED: Ondansetron 4 MG/2 ML SDV IVPUSH ONE (10:49)
[2019-03-05 11:53] LABS: BLOOD UREA NITROGEN,BUN 12 mg/dL (7.0-18.0); CHLORIDE,CL 105 mmol/L (98-107); GLUCOSE RANDOM 85 mg/dL (74-106); POTASSIUM,K 4.2 mmol/L (3.5-5.1); SODIUM,NA 142 mmol/L (136-145)
== END 2019-03-05 12:16 | disposition home or self-care (01) ==
LOC: MW.ED 10:03
DX: R51 Headache (principal); J45.909 Unspecified asthma, uncomplicated; Z91.048 Other nonmedicinal substance allergy status; Z79.51 Long term (current) use of inhaled steroids
CPT/HCPCS: 36415; 80053; 85025; 96361; 96374; 96375; 99284; J1200; J1885; J2405; J2765; J7030; 99283